=== PATIENT | female | born 1980 | race Caucasian/White ===

== ENCOUNTER 2022-02-01 14:41 | Emergency (ER) | payer OTHER, SELFPAY ==
--- NOTE | 2022-02-01 14:42 | ED.URI ---
HPI - URI/Sore Throat General Chief Complaint: Upper Respiratory Infection Stated Complaint: guzman/cough Time Seen by Provider: 02/01/22 14:41 Source: patient Mode of arrival: ambulatory Limitations: no limitations History of Present Illness HPI Narrative: Ms. Damon is a 41-year-old female patient presenting to the clinic today with complaints of headache and cough x2 days. She reports that her work is requiring her to have a COVID test to return. States that she had positive exposure to someone with COVID. She thinks that she may have bronchitis. She is a current smoker. She has not had any COVID vaccinations. MD elicited complaint: cough, nasal congestion and other (Headache) Related Data Home Medications Medication Instructions Recorded Confirmed atorvastatin 10 mg PO DAILY 02/01/22 02/01/22 esomeprazole magnesium [Nexium] 20 mg PO DAILY 02/01/22 02/01/22 lisinopril 5 mg PO DAILY 02/01/22 02/01/22 metformin 500 mg PO DAILY 02/01/22 02/01/22 prednisone 10 mg PO DAILY 02/01/22 02/01/22 trazodone 50 mg PO HS 02/01/22 02/01/22 Allergies Allergy/AdvReac Type Severity Reaction Status Date / Time No Known Allergies Allergy Verified 02/01/22 14:56 Review of Systems Review of Systems: Pertinent positives per HPI. Patient denies any fever, chills, rash, headache, visual changes, dizziness, shortness of breath, chest pain, palpitations, nausea, vomiting, diarrhea, constipation, abdominal pain, or any urinary issues. PMFSH Comments At the time of my signature, I reviewed and agree with the nursing past medical, surgical, social, and family history. There is no relevant family history pertinent to the patient complaint. Exam Narrative: General: Well-developed, overweight in no apparent distress Head: Normocephalic, atraumatic Eyes: Pupils equally round and reactive to light bilaterally, EOM intact, sclera and conjunctive clear, no discharge, lids normal Ears: TMs intact and clear, ear canals clear, no drainage, grossly hearing normal. Nose: Nares patent, clear discharge, mild inflammation, no sinus tenderness. Mouth: Oral pharynx without lesions or masses, good dentition, MMM. Postnasal drip Neck: Supple, trachea midline, no enlargement of anterior or posterior cervical nodes, no thyroid masses or goiter palpable. Cardio: Regular rate and rhythm, s1 and s2 normal, no murmur appreciated. Resp: Clear to auscultation bilaterally, no rhonchi, rales, wheezing or rubs Course Course Emergency Course: Portions of this record may have been created with voice recognition software. Level of Care: Express Care Visit Vital Signs Vital signs: Vital signs reviewed MDM - URI/Sore Throat MDM Narrative Medical decision making narrative: At the time of visit patient is resting comfortably on the exam table. She has nonproductive cough and nasal congestion x2 days. Has had positive exposure to COVID. COVID testing was obtained and was positive in the clinic. Paxlovid is contraindicated due to patient's medications trazodone and prednisone as this affects the CYPA 3 receptor. Supportive measures were discussed with the patient she voiced understanding of discharge instructions and agreed to treatment plan. Work note was given. Differential Diagnosis Differential diagnosis: Likely upper respiratory infection, sinusitis, viral infection, bronchitis, influenza, pharyngitis and other (COVID) Discharge Plan Discharge Clinical Impression: COVID-19 Patient Disposition: Home, Self-Care Condition: Stable Instructions: How To Wash Your Hands (ED), Droplet Precautions (ED), COVID-19 (Coronavirus Disease 2019) (ED), Face Coverings (Masks) and COVID-19 (ED), How to Recover from COVID-19 at Home (ED) Additional Instructions: COVID-19 test positive in the clinic Paxlovid is contraindicated due to patient's medications prednisone and trazodone interact with the CYP3A May try Coricidin HBP for symptoms. We do not want to supp
[2022-02-01 14:50] VITALS: BP 122/80; PULSE 116; RESP 20; TEMP 36.5; O2SAT 100
== END 2022-02-01 15:15 | disposition home or self-care (01) ==
PROVIDERS: Emergency Provider Nurse Practitioner Family
DX: U07.1 COVID-19 (principal); E78.00 Pure hypercholesterolemia, unspecified; I10 Essential (primary) hypertension; K21.9 Gastro-esophageal reflux disease without esophagitis; M06.9 Rheumatoid arthritis, unspecified; M79.7 Fibromyalgia; E11.9 Type 2 diabetes mellitus without complications
CPT/HCPCS: 87426; 99203; C9803; G0463

== ENCOUNTER 2022-05-05 13:55 | Emergency (ER) | payer OTHER, SELFPAY ==
[2022-05-05 14:51] VITALS: BP 135/98; PULSE 87; RESP 16; TEMP 36.4; O2SAT 100
--- NOTE | 2022-05-05 15:02 | ED.GENADULT ---
HPI - General Adult General Chief complaint: Unspecified Stated complaint: guzman/dizziness/diarrhea/rt wrist pain Time Seen by Provider: 05/05/22 15:10 History of Present Illness HPI narrative: Nancy Damon is a 42 yo female with a PMH of migraines, high cholesterol, Covid 02/11, HTN, depression, who comes with c/o headache. She has had a headache since last weekend she took someone else's Imitrex on Saturday said it helped a little bit; is here with some numbness and tingling of her arms and right wrist pain that she rates as 8 out of 10 with no known injury Related Data Home Medications Medication Instructions Recorded Confirmed atorvastatin 10 mg tablet 10 mg PO DAILY 02/01/22 02/01/22 esomeprazole magnesium 20 mg 20 mg PO DAILY 02/01/22 02/01/22 capsule,delayed release (Nexium) lisinopril 5 mg tablet 5 mg PO DAILY 02/01/22 02/01/22 metformin 500 mg tablet 500 mg PO DAILY 02/01/22 02/01/22 prednisone 10 mg tablet 10 mg PO DAILY 02/01/22 02/01/22 trazodone 50 mg tablet 50 mg PO HS 02/01/22 02/01/22 amlodipine 5 mg tablet mg 05/05/22 ergocalciferol (vitamin D2) 1,250 05/05/22 mcg (50,000 unit) capsule escitalopram oxalate 10 mg tablet mg 05/05/22 folic acid 1 mg tablet 05/05/22 lisinopril 20 mg tablet mg 05/05/22 topiramate 50 mg tablet mg 05/05/22 Allergies Allergy/AdvReac Type Severity Reaction Status Date / Time No Known Allergies Allergy Verified 02/01/22 14:56 Review of Systems Review of Systems: CONSTITUTIONAL: Denies fever, chills, sweats. Migraine headache EYES: Denies visual changes, redness, discharge. ENT: Denies rhinorrhea, congestion, sore throat, otalgia. CARDIOVASCULAR: Denies chest pain, palpitations, edema. RESPIRATORY: Denies dyspnea, wheezing, cough GASTROINTESTINAL: Denies abdominal pain, nausea, vomiting, diarrhea. GENITOURINARY: Denies dysuria, hematuria, abnormal discharge SKIN: Denies rash or itching. NEUROLOGIC: Denies numbness, or focal weakness. PSYCHIATRIC: Denies anxiety or depression. Right arm pain, tingling of arms PMFSH Past Medical History Medical History COVID-19 High cholesterol HTN (hypertension) Migraine headache Social History Social History (Updated 05/05/22 @ 15:20 by Elizabeth Howard CNP) Smoking packs per day: 0.5 Smoking cigarettes per day: 10.0 Smoking status: Current every day smoker Alcohol intake: current Comments At time of signature, I agree with nursing past medical, surgical, social and family history. There is no relevant family history pertinent to the presenting complaint. Exam Narrative: GENERAL: This is a well-nourished, well-developed patient, in mild distress. Has headache HEAD: normocephalic, atraumatic. EYES: PERRL. Sclera clear/white. Vision is grossly intact. EARS: External ears normal, auditory canals clear on left, right mild erythema but some fluid behind TM and without drainage, . Hearing grossly intact. NOSE: External nose normal without nasal discharge, nares without redness, no rhinorrhea. THROAT: Mucous membranes moist, posterior pharynx mild erythema NECK: Neck supple, range of motion of neck normal non-tender CARDIOVASCULAR: Regular rate and rhythm without murmurs, gallops, or rubs. RESPIRATORY: Clear to auscultation. Breath sounds equal bilaterally. No wheezes, rales, or rhonchi. GASTROINTESTINAL: Abdomen soft, non-tender, SKIN: warm, intact with no suspicious lesions or rash, good texture and turgor. NEURO: awake, alert, and oriented to person, place and time. There were no obvious focal neurologic abnormalities. Steady gait EXTREMITIES: Normal range of motion. Right wrist pain is able to supinate pronate and flex and extend wrist BACK: Nontender without deformity Course Course Emergency Course: Patient came to [facility] with complaints of right wrist pain, numbness of her arms when she lays down at night the last 2 days, has migraine headache since
[2022-05-05] MEDS: KETOROLAC (*BKC) 60 MG/2 ML VIAL IM (15:31)
[2022-05-05] MEDS: ONDANSETRON HCL ODT 4 MG TABLET PO (15:31)
--- NOTE | 2022-05-05 15:49 | PC.NURSE ---
stated did not want to be transferred to another facility for xray. aware director inpatient headache program has offered to do xrays at another facility without having to start over as new/ different pt. stated has appt. with pmd end of month and will f/u sooner if needed.
== END 2022-05-05 16:50 | disposition home or self-care (01) ==
PROVIDERS: Emergency Provider Nurse Practitioner
DX: G43.809 Other migraine, not intractable, without status migrainosus (principal); F17.219 Nicotine dependence, cigarettes, with unspecified nicotine-induced disorders; E78.00 Pure hypercholesterolemia, unspecified; I10 Essential (primary) hypertension; Z86.16 Personal history of COVID-19; F32.A Depression, unspecified
CPT/HCPCS: 96372; 99213; A9270; G0463; J1885

== ENCOUNTER 2022-09-03 11:10 | Emergency (ER) | payer OTHER, SELFPAY ==
--- NOTE | ~2022-09-03 | XR_ITS ---
EXAMINATION: XR chest 2V DATE: 09/03/2022 12:24 INDICATION: Cough and shortness of breath TECHNIQUE: PA and lateral views of the chest are obtained. COMPARISON: None available FINDINGS: The lungs are free of acute opacities. No pleural effusion or pneumothorax. The cardiomedia stinal silhouette is normal. There is mild thoracic spondylosis. Surgical clips in the right upper qu adrant are likely from prior cholecystectomy. IMPRESSION: 1. No acute cardiopulmonary abnormality. Reviewed, dictated and finalized at location [facility]. [facility]
[2022-09-03 11:59] VITALS: BP 135/79; PULSE 120; RESP 24; TEMP 36.8; O2SAT 100
--- NOTE | 2022-09-03 20:39 | ED.GENADULT ---
HPI - General Adult General Chief complaint: Upper Respiratory Infection Stated complaint: Cough,Body Aches,Headache,Congestion History of Present Illness HPI narrative: 42 y/o female. PMHx Migraine Dx, HTN, Dyslipidemia. Presents to [facility] today with cough, congestion, and body aches for the past 48 hours. She reports a 'deep' and productive 'yellow' cough. Intermittent dyspnea, no hemoptysis. Purulent nasal discharge, no fevers. No chest pain, palpitations, edema. Related Data Home Medications Medication Instructions Recorded Confirmed atorvastatin 10 mg tablet 10 mg PO DAILY 02/01/22 09/03/22 esomeprazole magnesium 20 mg 20 mg PO DAILY 02/01/22 09/03/22 capsule,delayed release (Nexium) metformin 500 mg tablet 500 mg PO DAILY 02/01/22 09/03/22 trazodone 50 mg tablet 50 mg PO HS 02/01/22 09/03/22 amlodipine 5 mg tablet 5 mg PO DAILY 05/05/22 09/03/22 ergocalciferol (vitamin D2) 1,250 1,250 mcg PO DAILY 05/05/22 09/03/22 mcg (50,000 unit) capsule escitalopram oxalate 10 mg tablet 10 mg PO DAILY 05/05/22 09/03/22 folic acid 1 mg tablet 1 mg PO DAILY 05/05/22 09/03/22 lisinopril 20 mg tablet 20 mg PO DAILY 05/05/22 09/03/22 topiramate 50 mg tablet 50 mg PO PRN PRN Migraine Headache 05/05/22 09/03/22 Allergies Allergy/AdvReac Type Severity Reaction Status Date / Time No Known Allergies Allergy Verified 09/03/22 11:54 Review of Systems Review of Systems: ?All systems reviewed & are unremarkable except as noted in HPI and below: -HENT: Congestion. -RESP: Cough. Dyspnea. [facility] Past Medical History Medical History COVID-19 High cholesterol HTN (hypertension) Migraine headache Social History Social History Smoking packs per day: 0.5 Smoking cigarettes per day: 10.0 Smoking status: Current every day smoker Alcohol intake: current Exam Narrative: GENERAL: Well-appearing, well-nourished, and in no acute distress. HEAD: Normocephalic, atraumatic. EYES: PERRLA, conjunctivae clear. ENT: Mucous membranes moist. Positive PND. Pharyngeal erythema, without swelling or exudative changes, Uvula midline. Palate soft. NECK: Supple. No lymphadenopathy. No meningeal signs. CHEST: Upper airway Rhonchi, cleared with cough. No respiratory distress. HEART: Regular rate and rhythm. SKIN: Warm, dry, intact NEURO:? Alert and oriented x3. PSYCH: Normal mood and affect Course Course Level of Care: Express Care Visit Vital Signs Vital signs: Vital Signs Temperature 36.8 C 09/03/22 11:59 Pulse Rate 120 H 09/03/22 11:59 Respiratory Rate 24 H 09/03/22 11:59 Blood Pressure 135/79 09/03/22 11:59 Pulse Oximetry 100 09/03/22 11:59 Oxygen Delivery Room Air 09/03/22 11:59 Temperature 36.8 C 09/03/22 11:59 Pulse Rate 120 H 09/03/22 11:59 Respiratory Rate 24 H 09/03/22 11:59 Blood Pressure 135/79 09/03/22 11:59 Pulse Oximetry 100 09/03/22 11:59 Oxygen Delivery Room Air 09/03/22 11:59 Medical Decision Making Differential Diagnosis Differential Diagnosis: Differential Diagnosis: Consideration of the following conditions may be warranted for the presenting problem, they are not final diagnoses: upper respiratory infection, otitis media, sinusitis, RSV viral infection, PNA, bronchitis, pharyngitis, Streptococcal sore throat, COVID-19, Influenza, and other. Vital Signs Vital Signs: Vital Signs Temperature 36.8 C 09/03/22 11:59 Pulse Rate 120 H 09/03/22 11:59 Respiratory Rate 24 H 09/03/22 11:59 Blood Pressure 135/79 09/03/22 11:59 Pulse Oximetry 100 09/03/22 11:59 Oxygen Delivery Room Air 09/03/22 11:59 Temperature 36.8 C 09/03/22 11:59 Pulse Rate 120 H 09/03/22 11:59 Respiratory Rate 24 H 09/03/22 11:59 Blood Pressure 135/79 09/03/22 11:59 Pulse Oximetry 100 09/03/22 11:59 Oxygen Delivery Room A
== END 2022-09-03 12:52 | disposition home or self-care (01) ==
PROVIDERS: Emergency Provider Nurse Practitioner Adult Health; PCP Pediatrics
DX: J06.9 Acute upper respiratory infection, unspecified (principal); J40 Bronchitis, not specified as acute or chronic; E78.00 Pure hypercholesterolemia, unspecified; I10 Essential (primary) hypertension; E78.5 Hyperlipidemia, unspecified; Z86.16 Personal history of COVID-19
CPT/HCPCS: 71046; 99213; G0463